=== PATIENT | male | born 1995 | race Caucasian/White ===

== ENCOUNTER 2019-07-13 07:57 | Emergency (ER) | payer MEDICAID ==
[2019-07-13 08:07] VITALS: BP 120/70
[2019-07-13] MEDS ORDERED: ACETAMINOPHEN 325 MG TABLET PO STA (08:29)
[2019-07-13] MEDS ORDERED: IBUPROFEN 600 MG TABLET PO STA (08:29)
[2019-07-13] MEDS ORDERED: AMOX/CLAV 875 MG/125 MG TABLET PO STA (08:29)
[2019-07-13] MEDS ORDERED: oxyCODONE 5 MG TABLET PO STA (08:30)
--- NOTE | 2019-07-13 08:41 | ED Physician Documentation ---
History of Present Illness - Stated complaint Stated Complaint: L SIDE MOUTH PX - Chief complaint Chief Complaint: Heent - Additonal information Additional information: This is a 23-year-old male who presents with dental pain. Patient states that he had some pain in his mouth for several months, worse on tooth 13 and 20. He was previously on antibiotics, but he ran out of them and has not taken any for several weeks. The pain is sharp, worse with hot or cold foods. He has not noticed any swelling of his face, no pain with swallowing, no pain with moving his neck. He is able to open and close his mouth normally. He has an appointment with a dentist this week, but his pain is been getting worse so he presented here for further evaluation Review of Systems Constitutional: denies: Fever Throat: reports: Dental pain / toothache Cardiac: denies: Chest pain / pressure Respiratory: denies: Dyspnea GI: denies: Abdominal Pain PD PAST MEDICAL HISTORY - Past Medical History Past Medical History: No - Past Surgical History Past Surgical History: No - Present Medications Home Medications: Ambulatory Orders Medication Instructions Recorded Confirmed Amox/Clav 875/125 [Augmentin] 1 each PO Q12H #20 tablet 07/13/19 RX: Ibuprofen 600 mg PO Q6H PRN #30 tablet 07/13/19 - Allergies Allergies/Adverse Reactions: Allergies Allergy/AdvReac Type Severity Reaction Status Date / Time No Known Drug Allergies Allergy Verified 07/13/19 08:01 - Social History Does the pt smoke?: Yes Smoking Status: Current every day smoker Does the pt drink ETOH?: Yes Does the pt have substance abuse?: Yes - Immunizations Immunizations are current?: Yes PD ED PE NORMAL - Vitals Vital signs reviewed: Yes - General General: Alert and oriented X 3, No acute distress - HEENT HEENT: Other (Generally poor dentition, teeth 13 and 20 are both broken. No gingival fluctuance or area of localized swelling. Full range of motion of the jaw. Full range of motion of his neck. There is no facial edema or erythema.) - Neck Neck: Supple, no meningeal sign - Cardiac Cardiac: RRR - Respiratory Respiratory: Clear bilaterally - Abdomen Abdomen: Non distended - Derm Derm: Warm and dry - Extremities Extremities: No deformity - Neuro Neuro: Alert and oriented X 3 - Psych Psych: Normal mood, Normal affect Results - Vitals Vitals: Vital Signs - 24 hr 07/13/19 08:01 Temperature 36.7 C Heart Rate 68 Respiratory 15 Rate Blood Pressure 120/70 O2 Saturation 98 Oxygen O2 Source Room air PD MEDICAL DECISION MAKING - ED course Complexity details: considered differential (Pulpitis, dental abscess, mirtha, cellulitis, dental infection) ED course: Patient presents with tooth pain which is ongoing for last several months but worsening recently. He has obvious poor dentition with broken teeth in the areas of his maximal pain. He does not have any drainable abscess today. He has no signs of facial cellulitis, or deep space infection. There are no signs of peritonsillar abscess or Moshe's. He is well-appearing and nontoxic. I discussed with him that he needs to follow-up with a dentist as soon as possible, he in fact has an appointment for later this week. We will treat him with Augmentin in the meantime, he first dose here and then he was prescribed a 10-day course. He was given ibuprofen and 1 dose of oxycodone here for pain control. I also prescribed him ibuprofen. I reviewed return precautions incl uding signs of worsening infection, and patient was discharged Departure - Departure Disposition: 01 Home, Self Care Clinical Impression: Pain, dental Condition: Good Instructions: ED Tooth Pain Follow-Up: Your,Dentist [Other] (For follow up as soon as possible) Prescriptions: Amox/Clav 875/125 [Augmentin] 1 each PO Q12H #20 tablet RX: Ibuprofen 600 mg PO Q6H PRN #30 tablet PRN Reason: Pain Comments: You were seen today for dental pain, you appear to have an infection extending into the pulp of several teeth. Please follow-up with your dentist as soon as possible. Take the antibiotic until you see your dentist, you may take ibuprofen for pain. Return if you have worsening pain, redness, or swelling of your face. Discharge Date/Time: 07/13/19 08:52
== END 2019-07-13 08:52 | disposition home or self-care (01) ==
LOC: ED 07:57
DX: K08.89 Other specified disorders of teeth and supporting structures (principal); S02.5XXA Fracture of tooth (traumatic), initial encounter for closed fracture; X58.XXXA Exposure to other specified factors, initial encounter; F17.200 Nicotine dependence, unspecified, uncomplicated
CPT/HCPCS: 99282; 99284; A9270

== ENCOUNTER 2020-01-16 14:59 | Emergency (ER) | payer MEDICAID ==
[2020-01-16 15:09] VITALS: BP 134/82
[2020-01-16] MEDS ORDERED: HYDROcod/ACETAM 5/325 MG TABLET PO STA (15:14)
[2020-01-16] MEDS ORDERED: AMOX/CLAV 875 MG/125 MG TABLET PO STA (15:14)
--- NOTE | 2020-01-16 15:15 | ED Physician Documentation ---
PD HPI HEADACHE - Stated complaint Stated Complaint: DENTAL PX - Chief complaint Chief Complaint: Heent - History obtained from History obtained from: Patient (24-year-old gentleman with generally bad teeth has had severe pain for the last few days from a left mandibular molar. No fevers or facial swelling. He has an appointment with a dentist in about 2 weeks.) Review of Systems Constitutional: denies: Fever, Chills Cardiac: denies: Chest pain / pressure, Palpitations Respiratory: denies: Dyspnea, Cough PD PAST MEDICAL HISTORY - Past Surgical History Past Surgical History: No - Present Medications Home Medications: Ambulatory Orders Medication Instructions Recorded Confirmed Amox/Clav 875/125 [Augmentin] 1 each PO Q12H #20 tablet 07/13/19 Ibuprofen 600 mg PO Q6H PRN #30 tablet 07/13/19 Amox/Clav 875/125 [Augmentin] 1 each PO Q12H #20 tablet 01/16/20 Hydrocodone/Acetaminophen 1 - 2 each PO Q6H PRN #14 tablet 01/16/20 [Hydrocodon-Acetaminophen 5-325] Ibuprofen [Motrin] 800 mg PO Q8H PRN #30 tablet 01/16/20 - Allergies Allergies/Adverse Reactions: Allergies Allergy/AdvReac Type Severity Reaction Status Date / Time No Known Drug Allergies Allergy Verified 01/16/20 15:12 - Social History Does the pt smoke?: Yes Smoking Status: Current every day smoker Does the pt drink ETOH?: Yes Does the pt have substance abuse?: Yes - Immunizations Immunizations are current?: Yes PD ED PE NORMAL - Vitals Vital signs reviewed: Yes - General General: Alert and oriented X 3, Other (He appears uncomfortable and in pain) - HEENT HEENT: Other (Only poor dentition, the culprit cavity is from a left mandibular molar, the lateral surface is mostly eroded away and tender. No obvious abscess, sublingual edema or trismus.) - Neck Neck: Supple, no meningeal sign, No bony TTP - Neuro Neuro: Alert and oriented X 3, Normal speech Results - Vitals Vitals: Vital Signs - 24 hr 01/16/20 15:08 Temperature 36.5 C Heart Rate 72 Respiratory 16 Rate Blood Pressure 134/82 H O2 Saturation 99 Oxygen O2 Source Room air Departure - Departure Disposition: 01 Home, Self Care Clinical Impression: Dental abscess Condition: Good Record reviewed to determine appropriate education?: Yes Instructions: ED Abscess Dental Prescriptions: Amox/Clav 875/125 [Augmentin] 1 each PO Q12H #20 tablet Hydrocodone/Acetaminophen [Hydrocodon-Acetaminophen 5-325] 1 - 2 each PO Q6H PRN #14 tablet PRN Reason: pain Ibuprofen [Motrin] 800 mg PO Q8H PRN #30 tablet PRN Reason: PAIN &/OR FEVER Comments: It is very important that you follow-up with a dentist. When it comes to dental problems like yours, the emergency department can only offer a short-term solution to your long-term problem. A couple of low cost options for dental care include: [facility] in [place], calls [phone] for an appointment Or [facility] in [place], call [phone] for an appointment. Do not drink or drive while taking narcotic pain medication. Note that many narcotic pain relievers also contain Tylenol/acetaminophen. Please ensure that your total dose of acetaminophen from all sources does not exceed 3 g (3000 mg) per day. You may get constipated while on this medication. Take a stool softener such as Colace twice a day while you are on it. Also add an [id number] laxative such as senna or MiraLAX on any day that you do not have a bowel movement. If you received a narcotic pain medication or sedative while in the emergency department, do not drive for the next 24 hours.
== END 2020-01-16 15:24 | disposition home or self-care (01) ==
LOC: ED 14:59
DX: K04.7 Periapical abscess without sinus (principal); F17.200 Nicotine dependence, unspecified, uncomplicated
CPT/HCPCS: 99283; A9270

== ENCOUNTER 2020-02-07 12:58 | Emergency (ER) | payer MEDICAID ==
[2020-02-07 13:09] VITALS: BP 129/69
--- NOTE | 2020-02-07 13:33 | ED Physician Documentation ---
History of Present Illness - Stated complaint Stated Complaint: [facility]IS[facility]/FEVER - Chief complaint Chief Complaint: General - History obtained from History obtained from: Patient - Additonal information Additional information: Mr. Garcia developed malaise, cough, dyspnea, and chills this morning. He has nausea without emesis. No diarrhea or urinary complaints. Denies any sick contacts. No history of chronic disease. 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 Review of Systems Constitutional: reports: Chills, Myalgias, Fatigue Eyes: denies: Loss of vision, Decreased vision, Photophobia, Irritation, Reviewed and negative, Other Nose: reports: Rhinorrhea / runny nose Throat: reports: Sore throat. denies: Dental pain / toothache, Oral lesions / sores, Swollen tonsils, Swallowed foreign body, Reviewed and negative, Other Cardiac: denies: Palpitations, Pedal edema, Calf pain, Reviewed and negative, Other Respiratory: reports: Dyspnea, Cough GI: reports: Nausea. denies: Abdominal Pain, Abdominal Swelling, Vomiting, Constipation, Diarrhea, Hematemesis, Bloody / black stool, Reviewed and negative, Other : denies: Dysuria, Frequency, Hesitancy, Unable to Void, Incontinent, Hematuria, Discharge, LMP, Vaginal bleeding, Irregular menses, Missed period, Now EGA, Control, Hysterectomy, Testicular pain, Testicular mass, Meng Problem, Reviewed and negative, Other Musculoskeletal: denies: Neck pain, Back pain, Extremity pain, Joint pain, Extremity swelling, Joint swelling, Pain with weight bearing, Reviewed and negative, Other Neurologic: reports: Generalized weakness PD PAST MEDICAL HISTORY - Past Medical History Past Medical History: No - Past Surgical History Past Surgical History: No - Present Medications Home Medications: Ambulatory Orders Medication Instructions Recorded Confirmed Amox/Clav 875/125 [Augmentin] 1 each PO Q12H #20 tablet 07/13/19 Ibuprofen 600 mg PO Q6H PRN #30 tablet 07/13/19 Amox/Clav 875/125 [Augmentin] 1 each PO Q12H #20 tablet 01/16/20 Hydrocodone/Acetaminophen 1 - 2 each PO Q6H PRN #14 tablet 01/16/20 [Hydrocodon-Acetaminophen 5-325] Ibuprofen [Motrin] 800 mg PO Q8H PRN #30 tablet 01/16/20 - Allergies Allergies/Adverse Reactions: Allergies Allergy/AdvReac Type Severity Reaction Status Date / Time No Known Drug Allergies Allergy Verified 02/07/20 13:05 - Social History Does the pt smoke?: Yes Smoking Status: Current every day smoker Does the pt drink ETOH?: Yes Does the pt have substance abuse?: Yes - Immunizations Immunizations are current?: Yes PD ED PE NORMAL - Vitals Vital signs reviewed: Yes - General General: Alert and oriented X 3, No acute distress, Well developed/nourished - HEENT HEENT: Atraumatic - Neck Neck: Supple, no meningeal sign - Cardiac Cardiac: RRR, No murmur - Respiratory Respiratory: No respiratory distress, Clear bilaterally - Neuro Neuro: Alert and oriented X 3, No motor deficit, Normal speech Motor: Obeys Commands Verbal: Oriented - Psych Psych: Normal mood Results - Vitals Vitals: Vital Signs - 24 hr 02/07/20 13:05 Temperature 36.7 C Heart Rate 89 Respiratory 14 Rate Blood Pressure 129/69 O2 Saturation 97 Oxygen O2 Source Room air PD MEDICAL DECISION MAKING - ED course Complexity details: other (discussed the diferential diagnosis and work up options. He is non-toxic appearing and in no distress. He was offered a work up. He states he will go home at this time an self isolate. Return precautions discussed. Case discsussed attending ER physician. ) Departure - Departure Disposition: 01 Home, Self Care Clinical Impression: Viral syndrome Condition: Stable Instructions: ED Viral Syndrome Ch Comments: Maintain oral hydration. Use ibuprofen and tylenol as needed. Self isolate until you are symptom free for 3-5 days. Seek emergent care for any emergent changes included developed any respiratory distress. Discharge Date/Time: 02/07/20 13:37
== END 2020-02-07 13:55 | disposition home or self-care (01) ==
LOC: ED 12:58
DX: B34.9 Viral infection, unspecified (principal); F17.200 Nicotine dependence, unspecified, uncomplicated
CPT/HCPCS: 99281; 99283

== ENCOUNTER 2020-12-15 05:10 | Emergency (ER) | payer MEDICAID ==
[2020-12-15 05:20] VITALS: BP 128/54
[2020-12-15] MEDS ORDERED: HYDROcod/ACETAM 5/325 MG TABLET PO STA (05:45)
--- NOTE | 2020-12-15 05:57 | ED Physician Documentation ---
PD HPI HEENT - Stated complaint Stated Complaint: MOUTH PX - Chief complaint Chief Complaint: Heent - History obtained from History obtained from: Patient - Additional information Additional information: Patient comes emergency department chief complaint of tooth pain. Patient states that he has a right maxillary molar which is bothering him and for which she is already seen the dentist. He is on antibiotics and plan is to have an extraction next month. Patient denies fevers or chills. No nausea or vomiting. He states that his pain is so bad that he cannot sleep. Review of the patient's records reveals patient has been here a number of times for dental pain before, but it has been nearly a year since patient's last visit. No documentation of drug use. No other complaints at this time. Review of Systems Ten Systems: 10 systems reviewed and negative Constitutional: reports: Reviewed and negative Eyes: reports: Reviewed and negative Ears: reports: Reviewed and negative Nose: reports: Reviewed and negative Throat: reports: Dental pain / toothache Cardiac: reports: Reviewed and negative Respiratory: reports: Reviewed and negative GI: reports: Reviewed and negative : reports: Reviewed and negative Skin: reports: Reviewed and negative Musculoskeletal: reports: Reviewed and negative Neurologic: reports: Reviewed and negative Psychiatric: reports: Reviewed and negative Endocrine: reports: Reviewed and negative Immunocompromised: reports: Reviewed and negative PD PAST MEDICAL HISTORY - Past Medical History Past Medical History: Yes - Past Surgical History Past Surgical History: No - Present Medications Home Medications: Ambulatory Orders Medication Instructions Recorded Confirmed Amox/Clav 875/125 [Augmentin] 1 each PO Q12H #20 tablet 01/16/20 12/15/20 Ibuprofen [Motrin] 800 mg PO Q8H PRN #30 tablet 01/16/20 12/15/20 HYDROcod/ACETAM 5/325 [[place] 5/325] 1 - 2 ea PO Q6H PRN #10 12/15/20 - Allergies Allergies/Adverse Reactions: Allergies Allergy/AdvReac Type Severity Reaction Status Date / Time No Known Drug Allergies Allergy Verified 12/15/20 05:20 - Social History Does the pt smoke?: Yes Smoking Status: Current every day smoker Does the pt drink ETOH?: Yes Does the pt have substance abuse?: Yes - Immunizations Immunizations are current?: Yes - POLST Patient has POLST: No PD ED PE NORMAL - Vitals Vital signs reviewed: Yes - General General: Alert and oriented X 3, No acute distress, Well developed/nourished - HEENT HEENT: Atraumatic, PERRL, EOMI, Moist mucous membranes - Neck Neck: Supple, no meningeal sign - Cardiac Cardiac: RRR, No murmur, Strong equal pulses - Respiratory Respiratory: No respiratory distress, Clear bilaterally - Abdomen Abdomen: Soft, Non tender, Non distended - Derm Derm: Warm and dry - Extremities Extremities: No deformity - Neuro Neuro: Alert and oriented X 3 - Psych Psych: Normal mood, Normal affect Results - Vitals Vitals: Vital Signs - 24 hr 12/15/20 12/15/20 05:10 05:25 Temperature 36.6 C 36.6 C Heart Rate 60 60 Respiratory 16 16 Rate Blood Pressure 128/54 L 128/54 L O2 Saturation 100 100 Oxygen O2 Source Room air PD MEDICAL DECISION MAKING - ED course Complexity details: considered differential, d/w patient ED course: The pt was treated symptomatically for his pain. We have discussed the need to continue his plan to follow-up with the dentist for his extraction. We have discussed the usual indications for return. Departure - Departure Disposition: 01 Home, Self Care Clinical Impression: Pain, dental Condition: Stable Instructions: ED Tooth Pain Prescriptions: HYDROcod/ACETAM 5/325 [[place] 5/325] 1 - 2 ea PO Q6H PRN #10 PRN Reason: Pain Discharge Date/Time: 12/15/20 06:02
== END 2020-12-15 06:02 | disposition home or self-care (01) ==
LOC: ED 05:10
DX: K08.89 Other specified disorders of teeth and supporting structures (principal); F17.200 Nicotine dependence, unspecified, uncomplicated
CPT/HCPCS: 99282; 99283; A9270

== ENCOUNTER 2022-11-13 03:43 | Emergency (ER) | payer SELFPAY ==
[2022-11-13 03:57] VITALS: BP 123/66
[2022-11-13] MEDS ORDERED: oxyCODONE/ACET 5/325 Prepack 4 PO STA (04:01)
--- NOTE | 2022-11-13 04:23 | ED Physician Documentation ---
History of Present Illness - Stated complaint Stated Complaint: MOUTH PX - Chief complaint Chief Complaint: Heent - History obtained from History obtained from: Patient, Family () - Additonal information Additional information: 26-year-old man with history of dental caries presents with dental pain to left lower teeth for the past several days, acutely worsening overnight.Endorses temperatures as high as 100 orally this week. Also with swelling. He was told that he should see a dental surgeon but states he has not had the time or money to do so. No shortness of breath, trismus. Review of Systems Constitutional: reports: Fever Throat: reports: Dental pain / toothache PD PAST MEDICAL HISTORY - Past Medical History Past Medical History: No Cardiovascular: None Respiratory: None Neuro: None Endocrine/Autoimmune: None GI: None : None HEENT: None Psych: None Musculoskeletal: None Derm: None Other Past Medical History: Right Boxer Fracture - Past Surgical History Past Surgical History: No - Present Medications Home Medications: Ambulatory Orders Medication Instructions Recorded Confirmed Amoxicillin 875 mg PO BID 10 Days #20 tablet 11/13/22 - Allergies Allergies/Adverse Reactions: Allergies Allergy/AdvReac Type Severity Reaction Status Date / Time No Known Drug Allergies Allergy Verified 11/13/22 03:57 - Social History Does the pt smoke?: Yes Smoking Status: Current every day smoker Does the pt drink ETOH?: Yes Does the pt have substance abuse?: Yes Substance Use and Type: Marijuana - Immunizations Immunizations are current?: Yes - POLST Patient has POLST: No PD ED PE NORMAL - Vitals Vital signs reviewed: Yes - General General: Alert and oriented X 3, No acute distress, Well developed/nourished - HEENT HEENT: Atraumatic, PERRL, EOMI, Other (Poor dentition, multiple dental caries) - Neck Neck: Other (no submental swelling or ttp) Results - Vitals Vitals: Vital Signs - 24 hr 11/13/22 03:54 Temperature 36.6 C Heart Rate 68 Respiratory 18 Rate Blood Pressure 123/66 O2 Saturation 99 Oxygen O2 Source Room air PD Medical Decision Making - ED course ED course: 26-year-old man presents with poor dentition and multiple infected dental car ies. Pain medication, antibiotics, dental referral provided. Return precautions given. Departure - Departure Disposition: 01 Home, Self Care Clinical Impression: Pain, dental Condition: Good Instructions: Decay Tooth Follow-Up: Janak Almendarez DDS [Provider Admit Priv/Credential] - Prescriptions: Amoxicillin 875 mg PO BID 10 Days #20 tablet Comments: You are seen in the emergency department for multiple dental cavities and dental pain. Prescription for amoxicillin was sent to [facility] electronically. Please follow-up with Dr. Janak Almendarez, Emergency dentist.Return to the emergency department if you have new or worsening symptoms or other concerns
== END 2022-11-13 04:25 | disposition home or self-care (01) ==
LOC: ED 03:43
DX: K08.89 Other specified disorders of teeth and supporting structures (principal); F17.200 Nicotine dependence, unspecified, uncomplicated
CPT/HCPCS: 99282; 99283